=== PATIENT | male | born 1940 | race Caucasian/White ===

== ENCOUNTER 2020-08-17 09:51 | Inpatient (IN) ==
[2020-08-17 10:59] LABS: Basophils % 0.4 % (0.0-0.8); Hematocrit 46.5 VOL% (42.0-52.0); Hemoglobin 15.8 GM/DL (14.0-18.0); Immature Granulocytes % 0.3 %; Immature Granulocytes Absolute 0.02 #; Lymphocytes # 0.9 10*3/uL (1.4-4.0); Lymphocytes % 12.7 % (21.2-54.2); Mean Corpuscular Volume 96.3 FL (87-102); Mean Platelet Volume 11.9 FL (9.6-12.0); Monocytes % 7.1 % (1.7-12.7); Neutrophils % 79.5 % (38.7-73.9); Platelet Count 157 T/CUMM (130-400); Red Blood Count 4.83 MC/CUMM (3.8-5.5); Red Cell Distribution Width 11.6 % (9.3-17.3); White Blood Count 7.2 T/CUMM (4-12)
[2020-08-17 11:22] LABS: Albumin 2.8 G/DL (3.4-5.0); Bilirubin,Total 0.7 MG/DL (0.2-1.0); Calcium 9.1 MG/DL (8.5-10.1); Osmolality,Calculated 292.4 MOS/KG (273-304); Total Protein 6.5 G/DL (6.4-8.3)
[2020-08-17 11:23] LABS: CKMB % 2.6 %; Troponin I 0.023 NG/ML (0.00-0.045)
[2020-08-17] MEDS ORDERED: MELATONIN 3 MG TABLET PO PRN (13:04)
[2020-08-17] MEDS ORDERED: GLUCAGON 1 MG VIAL IM PRN ×2 (13:04)
[2020-08-17] MEDS ORDERED: DEXTROSE 50% 25 GM/50 ML VIAL IV PRN ×2 (13:04)
[2020-08-17] MEDS ORDERED: ONDANSETRON 4 MG/2 ML VIAL IV PRN (13:04)
[2020-08-17] MEDS ORDERED: AZITHROMYCIN INJ 500 MG in SODIUM CHLORIDE 0.9% 250 ML IV ONE (13:20)
[2020-08-17 14:31] LABS: Ferritin 669.9 ng/ml (26-388)
[2020-08-17] MEDS ORDERED: REMDESIVIR 200 MG in SODIUM CHLORIDE 0.9% 210 ML IV ONE (15:00)
[2020-08-17] MEDS: cefTRIAXone 1,000 MG in SYRINGE 1 EACH IV SCH (15:17)
[2020-08-17] MEDS: SODIUM CHLORIDE 0.9% 1,000 ML IV SCH (15:22)
[2020-08-17] MEDS: INSULIN REGULAR 100 UNIT/ML SUBCUT SCH ×2 (16:39→21:26)
[2020-08-17 18:31] LABS: Amorphous Crystals,Urine Occasional /HPF (Few); Bilirubin,Urine Negative (Negative); Blood, Urine Small mg/dL (Negative); Glucose,Urine (UA) Negative (Negative); Hyaline Casts,Urine 15 /LPF (0-3); Ketones,Urine Negative (Negative); Mucus,Urine Occasional /LPF (Occasional); Nitrite,Urine Negative (Negative); Protein,Urine 100 MG/DL; RBC,Urine 3 /HPF (0-4); Squamous Epithelial Cell,Urine Occasional /HPF (0-10); Urine Appearance Slightly Hazy (Clear); Urine Color Amber (Yellow); Urine Specific Gravity 1.023 (1.001-1.035); WBC,Urine 1 /HPF (0-6)
[2020-08-17] MEDS: ENOXAPARIN 40 MG/0.4 ML SYRINGE SUBCUT SCH (21:26)
[2020-08-17] MEDS: FAMOTIDINE 20 MG TABLET PO SCH (21:26)
[2020-08-17] MEDS: ASCORBIC ACID 500 MG TABLET PO SCH (21:26)
[2020-08-18] MEDS ORDERED: DILTIAZEM 25 MG/5 ML VIAL IV ONE (01:35)
[2020-08-18] MEDS ORDERED: METOPROLOL TARTRATE 5 MG/5 ML VIAL IV ONE (01:41)
[2020-08-18] MEDS ORDERED: LORazepam 2 MG/1 ML VIAL IV ONE (01:58)
[2020-08-18 02:10] LABS: ABG Base Excess 0.2 MMOL/L (-2.5-2.5); ABG HCO3 24.2 MMOL/L (20-26); ABG PCO2 42.7 MM HG (35-48); ABG PH 7.385 (7.35-7.45); ABG PO2 48.4 MM HG (80-95); ABG TCO2 21.4 MMOL/L (23-27)
[2020-08-18] MEDS ORDERED: ETOMIDATE 20 MG/10 ML VIAL IV ONE ×2 (02:13→02:57)
[2020-08-18] MEDS ORDERED: ROCURONIUM 100 MG/10 ML VIAL IV ONE ×2 (02:13→02:57)
[2020-08-18] MEDS ORDERED: SODIUM CHLORIDE 0.9% 1,000 ML IV ONE (02:55)
[2020-08-18] MEDS: SODIUM CHLORIDE 0.9% 1,000 ML IV SCH ×5 (02:58→23:14)
[2020-08-18] MEDS: ACETAMINOPHEN 325 MG TABLET PO PRN (04:00)
[2020-08-18 04:04] LABS: ABG Base Excess -2.1 MMOL/L (-2.5-2.5); ABG HCO3 22.6 MMOL/L (20-26); ABG Oxygen Saturation 97.1 % (95-100); ABG PCO2 46.9 MM HG (35-48); ABG PH 7.326 (7.35-7.45); ABG PO2 99.5 MM HG (80-95); ABG TCO2 20.8 MMOL/L (23-27)
[2020-08-18 04:45] LABS: Basophils % 0.2 % (0.0-0.8); Hematocrit 45.8 VOL% (42.0-52.0); Hemoglobin 15.4 GM/DL (14.0-18.0); Immature Granulocytes % 0.6 %; Immature Granulocytes Absolute 0.06 #; Lymphocytes # 0.5 10*3/uL (1.4-4.0); Lymphocytes % 4.8 % (21.2-54.2); Mean Corpuscular HGB Conc 33.6 GM/DL (32-36); Mean Corpuscular Volume 96.2 FL (87-102); Mean Platelet Volume 11.8 FL (9.6-12.0); Monocytes % 5.5 % (1.7-12.7); Neutrophils % 88.9 % (38.7-73.9); Platelet Count 174 T/CUMM (130-400); Red Blood Count 4.76 MC/CUMM (3.8-5.5); Red Cell Distribution Width 11.6 % (9.3-17.3); White Blood Count 10.8 T/CUMM (4-12)
[2020-08-18 05:08] LABS: Albumin 2.2 G/DL (3.4-5.0); Bilirubin,Total 0.7 MG/DL (0.2-1.0); Calcium 8.3 MG/DL (8.5-10.1); Osmolality,Calculated 289.5 MOS/KG (273-304); Total Protein 6.1 G/DL (6.4-8.3)
[2020-08-18] MEDS: MIDAZOLAM 100 MG in SODIUM CHLORIDE 0.9% 80 ML IV PRN ×2 (05:12→22:13)
[2020-08-18 05:16] LABS: Band Neutrophils 1 % (0-10); Lymphocytes 2 % (20-55); Segmented Neutrophils 95 % (50-85); Total Cells Counted 100
[2020-08-18 05:17] LABS: Platelet Estimate Normal
[2020-08-18] MEDS: INSULIN REGULAR 100 UNIT/ML SUBCUT SCH ×3 (07:59→18:15)
[2020-08-18] MEDS: ASCORBIC ACID 500 MG TABLET PO SCH ×2 (08:27→20:07)
[2020-08-18] MEDS: DEXAMETHASONE 4 MG/1 ML VIAL IV SCH (08:27)
[2020-08-18] MEDS: AZITHROMYCIN 250 MG TABLET PO SCH (08:27)
[2020-08-18] MEDS: FAMOTIDINE 20 MG TABLET PO SCH ×2 (08:27→20:08)
[2020-08-18] MEDS: CETIRIZINE 10 MG TABLET PO SCH (08:27)
[2020-08-18] MEDS: ZINC GLUCONATE 50 MG TABLET PO SCH (08:27)
[2020-08-18] MEDS: ENOXAPARIN 40 MG/0.4 ML SYRINGE SUBCUT SCH ×2 (08:28→20:08)
[2020-08-18] MEDS ORDERED: DEXAMETHASONE 4 MG/1 ML VIAL IV SCH (09:00)
[2020-08-18] MEDS: PHENYLEPHRINE DRIP 40 MG/250 ML PREMIX IV PRN (14:15)
[2020-08-18] MEDS: REMDESIVIR 100 MG in SODIUM CHLORIDE 0.9% 100 ML IV SCH (14:15)
[2020-08-18] MEDS ORDERED: SODIUM CHLORIDE 0.9% 1,000 ML IV PRN (14:38)
[2020-08-18] MEDS: cefTRIAXone 1,000 MG in SYRINGE 1 EACH IV SCH (16:10)
[2020-08-19] MEDS: INSULIN REGULAR 100 UNIT/ML SUBCUT SCH ×4 (00:48→18:02)
[2020-08-19 04:17] LABS: Basophils % 0.1 % (0.0-0.8); Hematocrit 40.7 VOL% (42.0-52.0); Hemoglobin 13.9 GM/DL (14.0-18.0); Immature Granulocytes % 0.5 %; Immature Granulocytes Absolute 0.04 #; Lymphocytes # 0.6 10*3/uL (1.4-4.0); Lymphocytes % 7.3 % (21.2-54.2); Mean Corpuscular HGB Conc 34.2 GM/DL (32-36); Mean Corpuscular Volume 96.2 FL (87-102); Mean Platelet Volume 11.6 FL (9.6-12.0); Monocytes % 6.3 % (1.7-12.7); Neutrophils % 85.8 % (38.7-73.9); Platelet Count 153 T/CUMM (130-400); Red Blood Count 4.23 MC/CUMM (3.8-5.5); Red Cell Distribution Width 11.9 % (9.3-17.3); White Blood Count 8.7 T/CUMM (4-12)
[2020-08-19 04:40] LABS: Calcium 8.1 MG/DL (8.5-10.1); Osmolality,Calculated 305.7 MOS/KG (273-304)
[2020-08-19 05:00] LABS: Allen Test Positive; Pt O2 Delivery Device Ventilator
[2020-08-19 05:04] LABS: ABG Base Excess -0.9 MMOL/L (-2.5-2.5); ABG HCO3 23.6 MMOL/L (20-26); ABG PCO2 52.4 MM HG (35-48)
[2020-08-19] MEDS: SODIUM CHLORIDE 0.9% 1,000 ML IV SCH ×3 (05:32→17:24)
[2020-08-19] MEDS: DEXAMETHASONE 4 MG/1 ML VIAL IV SCH (08:20)
[2020-08-19] MEDS: ENOXAPARIN 40 MG/0.4 ML SYRINGE SUBCUT SCH ×2 (08:20→20:45)
[2020-08-19] MEDS: ZINC GLUCONATE 50 MG TABLET PO SCH (08:20)
[2020-08-19] MEDS: CETIRIZINE 10 MG TABLET PO SCH (08:21)
[2020-08-19] MEDS: ASCORBIC ACID 500 MG TABLET PO SCH ×2 (08:21→20:45)
[2020-08-19] MEDS: FAMOTIDINE 20 MG TABLET PO SCH ×2 (08:21→20:45)
[2020-08-19] MEDS: AZITHROMYCIN 250 MG TABLET PO SCH (08:21)
[2020-08-19] MEDS: REMDESIVIR 100 MG in SODIUM CHLORIDE 0.9% 100 ML IV SCH (14:53)
[2020-08-19] MEDS: MIDAZOLAM 100 MG in SODIUM CHLORIDE 0.9% 80 ML IV PRN (15:21)
[2020-08-19] MEDS: cefTRIAXone 1,000 MG in SYRINGE 1 EACH IV SCH (17:24)
[2020-08-20] MEDS: SODIUM CHLORIDE 0.9% 1,000 ML IV SCH (01:12)
[2020-08-20] MEDS: INSULIN REGULAR 100 UNIT/ML SUBCUT SCH ×4 (01:12→19:02)
[2020-08-20 02:52] LABS: ABG Base Excess 0.2 MMOL/L (-2.5-2.5); ABG HCO3 24.7 MMOL/L (20-26); ABG Oxygen Saturation 99.1 % (95-100); ABG PCO2 54.6 MM HG (35-48); ABG PH 7.313 (7.35-7.45); ABG TCO2 24.4 MMOL/L (23-27)
[2020-08-20 04:55] LABS: Basophils % 0.2 % (0.0-0.8); Hematocrit 39.9 VOL% (42.0-52.0); Immature Granulocytes % 0.7 %; Immature Granulocytes Absolute 0.08 #; Lymphocytes # 0.5 10*3/uL (1.4-4.0); Lymphocytes % 4.5 % (21.2-54.2); Mean Corpuscular HGB Conc 32.6 GM/DL (32-36); Mean Corpuscular Volume 97.8 FL (87-102); Mean Platelet Volume 12.2 FL (9.6-12.0); Monocytes % 7.9 % (1.7-12.7); Neutrophils % 86.7 % (38.7-73.9); Platelet Count 144 T/CUMM (130-400); Red Blood Count 4.08 MC/CUMM (3.8-5.5); Red Cell Distribution Width 11.9 % (9.3-17.3); White Blood Count 11.4 T/CUMM (4-12)
[2020-08-20 04:57] LABS: Calcium 8.6 MG/DL (8.5-10.1); Osmolality,Calculated 308.6 MOS/KG (273-304)
[2020-08-20 05:27] LABS: Lymphocytes 4 % (20-55); Platelet Estimate Adequate; Segmented Neutrophils 94 % (50-85); Total Cells Counted 100
[2020-08-20] MEDS: ENOXAPARIN 40 MG/0.4 ML SYRINGE SUBCUT SCH ×2 (08:10→20:18)
[2020-08-20] MEDS: DEXAMETHASONE 4 MG/1 ML VIAL IV SCH (08:10)
[2020-08-20] MEDS: FAMOTIDINE 20 MG TABLET PO SCH ×2 (08:11→20:18)
[2020-08-20] MEDS: AZITHROMYCIN 250 MG TABLET PO SCH (08:11)
[2020-08-20] MEDS: ASCORBIC ACID 500 MG TABLET PO SCH ×2 (08:11→20:18)
[2020-08-20] MEDS: ZINC GLUCONATE 50 MG TABLET PO SCH (08:11)
[2020-08-20] MEDS: CETIRIZINE 10 MG TABLET PO SCH (08:11)
[2020-08-20] MEDS ORDERED: SODIUM CHLORIDE 0.45% 1,000 ML IV SCH (08:30)
[2020-08-20] MEDS ORDERED: FUROSEMIDE 40 MG/4 ML VIAL IV ONE (09:42)
[2020-08-20] MEDS: ALBUTEROL INHALER 18 GM INH SCH ×2 (12:37→21:03)
[2020-08-20] MEDS: cefTRIAXone 1,000 MG in SYRINGE 1 EACH IV SCH (17:20)
[2020-08-20] MEDS: REMDESIVIR 100 MG in SODIUM CHLORIDE 0.9% 100 ML IV SCH (18:20)
[2020-08-20] MEDS: cloNIDine 0.1 MG TABLET PO SCH (20:18)
[2020-08-20] MEDS ORDERED: METOPROLOL TARTRATE 5 MG/5 ML VIAL IV ONE (22:54)
[2020-08-20] MEDS ORDERED: fentaNYL 100 MCG/2 ML VIAL IV ONE (23:14)
[2020-08-20] MEDS: ACETAMINOPHEN 325 MG TABLET PO PRN (23:21)
[2020-08-21] MEDS: fentaNYL INJ 1,250 MCG in SODIUM CHLORIDE 0.9% 225 ML IV PRN ×3 (00:15→21:00)
[2020-08-21] MEDS: ALBUTEROL INHALER 18 GM INH SCH ×4 (00:15→18:41)
[2020-08-21] MEDS: INSULIN REGULAR 100 UNIT/ML SUBCUT SCH ×4 (00:15→18:41)
[2020-08-21 04:03] LABS: ABG Base Excess 4.6 MMOL/L (-2.5-2.5); ABG HCO3 28.3 MMOL/L (20-26); ABG PCO2 56.9 MM HG (35-48); ABG PH 7.358 (7.35-7.45); ABG PO2 56.9 MM HG (80-95); ABG TCO2 27.8 MMOL/L (23-27)
[2020-08-21 05:28] LABS: Basophils # 0.1 10*3/uL (0.0-0.2); Basophils % 0.5 % (0.0-0.8); Hemoglobin 14.3 GM/DL (14.0-18.0); Immature Granulocytes % 2.9 %; Lymphocytes # 0.7 10*3/uL (1.4-4.0); Lymphocytes % 5.2 % (21.2-54.2); Mean Corpuscular HGB Conc 33.3 GM/DL (32-36); Mean Corpuscular Volume 98.6 FL (87-102); Mean Platelet Volume 12.2 FL (9.6-12.0); Monocytes % 9.6 % (1.7-12.7); Neutrophils % 81.8 % (38.7-73.9); Platelet Count 114 T/CUMM (130-400); Red Blood Count 4.36 MC/CUMM (3.8-5.5); White Blood Count 13.9 T/CUMM (4-12)
[2020-08-21 05:53] LABS: Calcium 8.8 MG/DL (8.5-10.1); Osmolality,Calculated 303.7 MOS/KG (273-304)
[2020-08-21] MEDS: DEXAMETHASONE 4 MG/1 ML VIAL IV SCH (08:19)
[2020-08-21] MEDS: ENOXAPARIN 40 MG/0.4 ML SYRINGE SUBCUT SCH (08:19)
[2020-08-21] MEDS: ASCORBIC ACID 500 MG TABLET PO SCH ×2 (08:20→20:01)
[2020-08-21] MEDS: CETIRIZINE 10 MG TABLET PO SCH (08:20)
[2020-08-21] MEDS: FAMOTIDINE 20 MG TABLET PO SCH ×2 (08:20→20:01)
[2020-08-21] MEDS: AZITHROMYCIN 250 MG TABLET PO SCH (08:20)
[2020-08-21] MEDS: ZINC GLUCONATE 50 MG TABLET PO SCH (08:20)
[2020-08-21] MEDS: cloNIDine 0.1 MG TABLET PO SCH (09:25)
[2020-08-21] MEDS: PHENYLEPHRINE DRIP 40 MG/250 ML PREMIX IV PRN ×3 (10:15→23:51)
[2020-08-21] MEDS: REMDESIVIR 100 MG in SODIUM CHLORIDE 0.9% 100 ML IV SCH (14:52)
[2020-08-21] MEDS: cefTRIAXone 1,000 MG in SYRINGE 1 EACH IV SCH (18:41)
[2020-08-21] MEDS: ROCURONIUM 500 MG in SODIUM CHLORIDE 0.9% 500 ML IV PRN (23:51)
[2020-08-22] MEDS: INSULIN REGULAR 100 UNIT/ML SUBCUT SCH ×4 (01:22→18:05)
[2020-08-22] MEDS: ALBUTEROL INHALER 18 GM INH SCH ×4 (01:22→18:06)
[2020-08-22] MEDS: fentaNYL INJ 1,250 MCG in SODIUM CHLORIDE 0.9% 225 ML IV PRN ×2 (05:15→06:18)
[2020-08-22 05:18] LABS: ABG Base Excess 1.6 MMOL/L (-2.5-2.5); ABG HCO3 25.7 MMOL/L (20-26); ABG PO2 79.6 MM HG (80-95); ABG TCO2 28.1 MMOL/L (23-27); Allen Test Positive; Pt O2 Delivery Device Ventilator
[2020-08-22] MEDS: PHENYLEPHRINE DRIP 40 MG/250 ML PREMIX IV PRN ×3 (06:13→18:43)
[2020-08-22] MEDS: fentaNYL INJ 2,500 MCG in SODIUM CHLORIDE 0.9% 500 ML IV PRN ×2 (06:33→16:41)
[2020-08-22 07:14] LABS: Basophils # 0.1 10*3/uL (0.0-0.2); Basophils % 0.3 % (0.0-0.8); Eosinophils % 0.1 % (0.00-10.9); Hematocrit 43.4 VOL% (42.0-52.0); Hemoglobin 13.8 GM/DL (14.0-18.0); Immature Granulocytes % 8.2 %; Immature Granulocytes Absolute 1.58 #; Lymphocytes # 1.4 10*3/uL (1.4-4.0); Lymphocytes % 7.5 % (21.2-54.2); Mean Corpuscular HGB Conc 31.8 GM/DL (32-36); Mean Corpuscular Volume 102.4 FL (87-102); Mean Platelet Volume 12.1 FL (9.6-12.0); Monocytes % 8.5 % (1.7-12.7); NRBC # 0.03 10*3/uL; Neutrophils % 75.4 % (38.7-73.9); Red Blood Count 4.24 MC/CUMM (3.8-5.5); Red Cell Distribution Width 12.6 % (9.3-17.3)
[2020-08-22 07:16] LABS: Platelet Count 97 T/CUMM (130-400); White Blood Count 19.2 T/CUMM (4-12)
[2020-08-22 07:42] LABS: Band Neutrophils 3 % (0-10); Lymphocytes 14 % (20-55); Myelocytes 1 %; Nucleated Red Blood Cells 1 (0-5); Segmented Neutrophils 76 % (50-85); Total Cells Counted 100
[2020-08-22 07:43] LABS: Hypochromasia Slight; Microcytosis Slight
[2020-08-22 07:44] LABS: Platelet Estimate Decreased
[2020-08-22 07:51] LABS: Calcium 8.4 MG/DL (8.5-10.1)
[2020-08-22] MEDS: FAMOTIDINE 20 MG TABLET PO SCH ×2 (09:06→20:17)
[2020-08-22] MEDS: FONDAPARINUX 2.5 MG/0.5 ML SYRINGE SUBCUT SCH (09:06)
[2020-08-22] MEDS: DEXAMETHASONE 4 MG/1 ML VIAL IV SCH (09:06)
[2020-08-22] MEDS: ZINC GLUCONATE 50 MG TABLET PO SCH (09:06)
[2020-08-22] MEDS: CETIRIZINE 10 MG TABLET PO SCH (09:11)
[2020-08-22] MEDS: ASCORBIC ACID 500 MG TABLET PO SCH ×2 (09:11→20:17)
[2020-08-22] MEDS: ROCURONIUM 500 MG in SODIUM CHLORIDE 0.9% 500 ML IV PRN (12:18)
[2020-08-22] MEDS: ACETAMINOPHEN 325 MG TABLET PO PRN (12:20)
[2020-08-22] MEDS: methylPREDNISolone SOD SUC 40 MG/1 ML VIAL IV SCH ×2 (12:56→20:18)
[2020-08-22] MEDS: FUROSEMIDE 40 MG/4 ML VIAL IV SCH (12:56)
[2020-08-22 13:49] LABS: ABG HCO3 25.2 MMOL/L (20-26); ABG PH 7.243 (7.35-7.45); ABG PO2 75.5 MM HG (80-95); ABG TCO2 27.7 MMOL/L (23-27)
[2020-08-22 13:50] LABS: ABG PCO2 72.8 MM HG (35-48)
[2020-08-22] MEDS: PIPERACILLIN/TAZOBACTAM 3,375 MG in SODIUM CHLORIDE 0.9% 100 ML IV SCH (15:34)
[2020-08-22 18:14] LABS: ABG Base Excess 1.6 MMOL/L (-2.5-2.5); ABG HCO3 25.9 MMOL/L (20-26); ABG Oxygen Saturation 98.1 % (95-100); ABG PH 7.276 (7.35-7.45); ABG TCO2 27.2 MMOL/L (23-27)
[2020-08-22] MEDS: MIDAZOLAM 100 MG in SODIUM CHLORIDE 0.9% 80 ML IV PRN (20:05)
[2020-08-23] MEDS: ALBUTEROL INHALER 18 GM INH SCH ×4 (00:12→18:09)
[2020-08-23] MEDS: PIPERACILLIN/TAZOBACTAM 3,375 MG in SODIUM CHLORIDE 0.9% 100 ML IV SCH ×2 (00:12→06:23)
[2020-08-23] MEDS: INSULIN REGULAR 100 UNIT/ML SUBCUT SCH ×4 (00:12→18:09)
[2020-08-23] MEDS: ROCURONIUM 500 MG in SODIUM CHLORIDE 0.9% 500 ML IV PRN (00:13)
[2020-08-23 04:07] LABS: Allen Test Positive; Pt O2 Delivery Device Ventilator
[2020-08-23 04:13] LABS: ABG Base Excess 0.5 MMOL/L (-2.5-2.5); ABG HCO3 24.8 MMOL/L (20-26); ABG Oxygen Saturation 98.5 % (95-100); ABG PH 7.214 (7.35-7.45); ABG TCO2 28.2 MMOL/L (23-27)
[2020-08-23 04:47] LABS: ABG PCO2 77.6 MM HG (35-48)
[2020-08-23 05:00] LABS: Basophils % 0.1 % (0.0-0.8); Hematocrit 41.2 VOL% (42.0-52.0); Immature Granulocytes % 9.2 %; Immature Granulocytes Absolute 1.78 #; Lymphocytes % 5.2 % (21.2-54.2); Mean Corpuscular HGB Conc 31.6 GM/DL (32-36); Mean Platelet Volume 12.5 FL (9.6-12.0); Monocytes % 6.2 % (1.7-12.7); NRBC # 0.03 10*3/uL; Neutrophils % 79.3 % (38.7-73.9); Red Cell Distribution Width 12.5 % (9.3-17.3); White Blood Count 19.3 T/CUMM (4-12)
[2020-08-23 05:04] LABS: Platelet Count 67 T/CUMM (130-400)
[2020-08-23] MEDS: fentaNYL INJ 2,500 MCG in SODIUM CHLORIDE 0.9% 500 ML IV PRN ×2 (05:12→13:40)
[2020-08-23] MEDS: PHENYLEPHRINE DRIP 40 MG/250 ML PREMIX IV PRN ×4 (05:13→22:32)
[2020-08-23 05:20] LABS: Calcium 8.6 MG/DL (8.5-10.1); Osmolality,Calculated 325.4 MOS/KG (273-304)
[2020-08-23 05:23] LABS: Lymphocytes 3 % (20-55); Nucleated Red Blood Cells 1 (0-5); Platelet Estimate Decreased; Segmented Neutrophils 91 % (50-85); Total Cells Counted 100
[2020-08-23] MEDS: methylPREDNISolone SOD SUC 40 MG/1 ML VIAL IV SCH ×3 (06:22→20:21)
[2020-08-23] MEDS: ASCORBIC ACID 500 MG TABLET PO SCH ×2 (09:36→20:21)
[2020-08-23] MEDS: ZINC GLUCONATE 50 MG TABLET PO SCH (09:36)
[2020-08-23] MEDS: FUROSEMIDE 40 MG/4 ML VIAL IV SCH (09:36)
[2020-08-23] MEDS: FAMOTIDINE 20 MG TABLET PO SCH ×2 (09:36→20:21)
[2020-08-23] MEDS ORDERED: FONDAPARINUX 2.5 MG/0.5 ML SYRINGE SUBCUT SCH (10:45)
[2020-08-23] MEDS: FONDAPARINUX 2.5 MG/0.5 ML SYRINGE SUBCUT SCH (11:19)
[2020-08-23] MEDS: CEFEPIME 1,000 MG in SODIUM CHLORIDE 0.9% 100 ML IV SCH ×2 (11:42→17:20)
[2020-08-23] MEDS ORDERED: FONDAPARINUX 2.5 MG/0.5 ML SYRINGE SUBCUT ONE (14:00)
[2020-08-23] MEDS: SODIUM ZIRCONIUM CYCLOSILICATE 10 GM PACK PO SCH ×2 (16:34→20:21)
[2020-08-24] MEDS: INSULIN REGULAR 100 UNIT/ML SUBCUT SCH ×4 (00:40→18:27)
[2020-08-24] MEDS: CEFEPIME 1,000 MG in SODIUM CHLORIDE 0.9% 100 ML IV SCH ×5 (00:40→23:16)
[2020-08-24] MEDS: ALBUTEROL INHALER 18 GM INH SCH ×4 (00:40→18:28)
[2020-08-24 04:52] LABS: ABG Base Excess 3.9 MMOL/L (-2.5-2.5); ABG HCO3 27.7 MMOL/L (20-26); ABG PH 7.292 (7.35-7.45); ABG PO2 70.3 MM HG (80-95); ABG TCO2 29.3 MMOL/L (23-27); Allen Test Positive; Pt O2 Delivery Device Ventilator
[2020-08-24] MEDS: fentaNYL INJ 2,500 MCG in SODIUM CHLORIDE 0.9% 500 ML IV PRN ×2 (05:03→21:29)
[2020-08-24 05:11] LABS: Basophils % 0.1 % (0.0-0.8); Hematocrit 40.7 VOL% (42.0-52.0); Hemoglobin 12.5 GM/DL (14.0-18.0); Immature Granulocytes % 8.2 %; Immature Granulocytes Absolute 1.51 #; Lymphocytes # 0.6 10*3/uL (1.4-4.0); Lymphocytes % 3.2 % (21.2-54.2); Mean Corpuscular HGB Conc 30.7 GM/DL (32-36); Mean Corpuscular Volume 104.1 FL (87-102); Mean Platelet Volume 12.6 FL (9.6-12.0); Monocytes % 8.8 % (1.7-12.7); NRBC # 0.07 10*3/uL; Neutrophils % 79.7 % (38.7-73.9); Red Blood Count 3.91 MC/CUMM (3.8-5.5); Red Cell Distribution Width 12.7 % (9.3-17.3); White Blood Count 18.4 T/CUMM (4-12)
[2020-08-24 05:13] LABS: Platelet Count 50 T/CUMM (130-400)
[2020-08-24] MEDS: MIDAZOLAM 100 MG in SODIUM CHLORIDE 0.9% 80 ML IV PRN (05:30)
[2020-08-24 05:32] LABS: Hypochromasia 1+; Lymphocytes 2 % (20-55); Myelocytes 1 %; Segmented Neutrophils 93 % (50-85); Total Cells Counted 100
[2020-08-24 05:33] LABS: Macrocytosis Slight; Platelet Estimate Decreased
[2020-08-24 05:37] LABS: Calcium 8.9 MG/DL (8.5-10.1)
[2020-08-24] MEDS: methylPREDNISolone SOD SUC 40 MG/1 ML VIAL IV SCH ×3 (06:02→21:34)
[2020-08-24 06:15] LABS: Folate 19.6 NG/ML (5.4-24.0)
[2020-08-24] MEDS: ZINC GLUCONATE 50 MG TABLET PO SCH (10:36)
[2020-08-24] MEDS: FONDAPARINUX 7.5 MG/0.6 ML SYRINGE SUBCUT SCH (10:36)
[2020-08-24] MEDS: METOPROLOL TARTRATE 5 MG/5 ML VIAL IV PRN (10:36)
[2020-08-24] MEDS: SODIUM ZIRCONIUM CYCLOSILICATE 10 GM PACK PO SCH (10:36)
[2020-08-24] MEDS: FAMOTIDINE 20 MG TABLET PO SCH ×2 (10:36→21:33)
[2020-08-24] MEDS: ASCORBIC ACID 500 MG TABLET PO SCH ×2 (10:37→21:33)
[2020-08-24] MEDS ORDERED: SODIUM POLYSTYRENE SULFATE 15 GM/60 ML BOTTLE PO ONE (13:32)
[2020-08-24] MEDS ORDERED: cloNIDine 0.1 MG TABLET PO PRN (13:39)
[2020-08-24] MEDS: METOPROLOL TARTRATE 25 MG TABLET PO SCH ×2 (16:42→21:33)
[2020-08-24] MEDS ORDERED: INSULIN GLARGINE 100 UNIT/ML SUBCUT SCH (21:00)
[2020-08-24] MEDS: ACETAMINOPHEN 325 MG TABLET PO PRN (21:55)
[2020-08-25] MEDS: INSULIN REGULAR 100 UNIT/ML SUBCUT SCH ×4 (01:03→18:10)
[2020-08-25] MEDS: ALBUTEROL INHALER 18 GM INH SCH ×4 (01:04→18:10)
[2020-08-25 03:11] LABS: ABG Base Excess 4.6 MMOL/L (-2.5-2.5); ABG HCO3 28.5 MMOL/L (20-26); ABG Oxygen Saturation 98.9 % (95-100); ABG PH 7.283 (7.35-7.45); ABG TCO2 30.5 MMOL/L (23-27)
[2020-08-25 03:13] LABS: ABG PCO2 71.8 MM HG (35-48)
[2020-08-25 04:19] LABS: Basophils # 0.1 10*3/uL (0.0-0.2); Basophils % 0.6 % (0.0-0.8); Hematocrit 39.9 VOL% (42.0-52.0); Hemoglobin 12.2 GM/DL (14.0-18.0); Lymphocytes # 0.5 10*3/uL (1.4-4.0); Lymphocytes % 3.3 % (21.2-54.2); Mean Corpuscular HGB Conc 30.6 GM/DL (32-36); Mean Corpuscular Volume 105.8 FL (87-102); Mean Platelet Volume 13.3 FL (9.6-12.0); Monocytes % 8.3 % (1.7-12.7); NRBC # 0.08 10*3/uL; Neutrophils % 79.8 % (38.7-73.9); Red Blood Count 3.77 MC/CUMM (3.8-5.5); Red Cell Distribution Width 12.8 % (9.3-17.3); White Blood Count 16.2 T/CUMM (4-12)
[2020-08-25 04:20] LABS: Platelet Count 56 T/CUMM (130-400)
[2020-08-25 04:43] LABS: Hypochromasia 1+; Lymphocytes 9 % (20-55); Microcytosis 1+; Nucleated Red Blood Cells 1 (0-5); Platelet Estimate Decreased; Segmented Neutrophils 85 % (50-85); Total Cells Counted 100
[2020-08-25 04:47] LABS: Osmolality,Calculated 340.7 MOS/KG (273-304)
[2020-08-25] MEDS: methylPREDNISolone SOD SUC 40 MG/1 ML VIAL IV SCH ×3 (05:57→21:33)
[2020-08-25] MEDS: CEFEPIME 1,000 MG in SODIUM CHLORIDE 0.9% 100 ML IV SCH ×3 (05:58→18:10)
[2020-08-25] MEDS: METOPROLOL TARTRATE 5 MG/5 ML VIAL IV PRN (06:18)
[2020-08-25] MEDS ORDERED: hydrALAZINE 20 MG/1 ML VIAL IV PRN (06:41)
[2020-08-25] MEDS: ASCORBIC ACID 500 MG TABLET PO SCH ×2 (08:15→21:32)
[2020-08-25] MEDS: METOPROLOL TARTRATE 25 MG TABLET PO SCH ×2 (08:15→21:32)
[2020-08-25] MEDS: ZINC GLUCONATE 50 MG TABLET PO SCH (08:15)
[2020-08-25] MEDS: FAMOTIDINE 20 MG TABLET PO SCH ×2 (08:15→21:33)
[2020-08-25] MEDS: cloNIDine 0.1 MG TABLET PO SCH (08:15)
[2020-08-25] MEDS: FONDAPARINUX 7.5 MG/0.6 ML SYRINGE SUBCUT SCH (08:17)
[2020-08-25] MEDS: ZINC OXIDE PASTE 113 GM TUBE TOP SCH ×2 (12:28→21:38)
[2020-08-25] MEDS: fentaNYL INJ 2,500 MCG in SODIUM CHLORIDE 0.9% 500 ML IV PRN (13:18)
[2020-08-25] MEDS: DEXTROSE 5% 1,000 ML IV SCH (15:15)
[2020-08-25] MEDS ORDERED: INSULIN GLARGINE 100 UNIT/ML SUBCUT SCH (21:00)
[2020-08-26] MEDS: cloNIDine 0.1 MG TABLET PO SCH ×3 (00:04→11:33)
[2020-08-26] MEDS ORDERED: MIDAZOLAM 100 MG in SODIUM CHLORIDE 0.9% 80 ML IV PRN (00:18)
[2020-08-26] MEDS: INSULIN REGULAR 100 UNIT/ML SUBCUT SCH ×4 (01:00→17:54)
[2020-08-26] MEDS: ALBUTEROL INHALER 18 GM INH SCH ×4 (01:30→18:19)
[2020-08-26] MEDS: PHENYLEPHRINE DRIP 40 MG/250 ML PREMIX IV PRN ×4 (01:38→22:24)
[2020-08-26] MEDS: fentaNYL INJ 2,500 MCG in SODIUM CHLORIDE 0.9% 450 ML IV PRN ×4 (02:15→20:40)
[2020-08-26 03:05] VITALS: BP 106/73
[2020-08-26 04:57] LABS: ABG Base Excess 2.8 MMOL/L (-2.5-2.5); ABG HCO3 32.2 MMOL/L (20-26); ABG Oxygen Saturation 87.8 % (95-100); ABG PH 7.244 (7.35-7.45); ABG PO2 59.3 MM HG (80-95); ABG TCO2 34.6 MMOL/L (23-27)
[2020-08-26 04:58] LABS: ABG PCO2 76.2 MM HG (35-48)
[2020-08-26 04:59] LABS: Basophils # 0.2 10*3/uL (0.0-0.2); Basophils % 0.9 % (0.0-0.8); Hematocrit 39.2 VOL% (42.0-52.0); Hemoglobin 11.8 GM/DL (14.0-18.0); Immature Granulocytes % 9.5 %; Immature Granulocytes Absolute 2.09 #; Lymphocytes # 0.6 10*3/uL (1.4-4.0); Lymphocytes % 2.7 % (21.2-54.2); Mean Corpuscular HGB Conc 30.1 GM/DL (32-36); Mean Corpuscular Volume 107.7 FL (87-102); Mean Platelet Volume 13.6 FL (9.6-12.0); Monocytes % 4.3 % (1.7-12.7); NRBC # 0.18 10*3/uL; Neutrophils % 82.6 % (38.7-73.9); Platelet Count 56 T/CUMM (130-400); Red Blood Count 3.64 MC/CUMM (3.8-5.5); Red Cell Distribution Width 12.6 % (9.3-17.3); White Blood Count 22.1 T/CUMM (4-12)
[2020-08-26 05:16] LABS: Albumin 1.6 G/DL (3.4-5.0); Bilirubin,Total 0.8 MG/DL (0.2-1.0); Calcium 8.5 MG/DL (8.5-10.1); Ferritin 1654.7 ng/ml (26-388); Osmolality,Calculated 331.7 MOS/KG (273-304); Total Protein 5.7 G/DL (6.4-8.3)
[2020-08-26 05:40] LABS: Band Neutrophils 4 % (0-10); Hypochromasia Slight; Lymphocytes 4 % (20-55); Myelocytes 1 %; Nucleated Red Blood Cells 1 (0-5); Segmented Neutrophils 90 % (50-85); Total Cells Counted 100
[2020-08-26 05:41] LABS: Microcytosis 1+; Platelet Estimate Decreased; Polychromasia Slight
[2020-08-26] MEDS: CEFEPIME 1,000 MG in SODIUM CHLORIDE 0.9% 100 ML IV SCH ×4 (06:29→17:53)
[2020-08-26] MEDS: methylPREDNISolone SOD SUC 40 MG/1 ML VIAL IV SCH ×4 (06:29→20:49)
[2020-08-26] MEDS: ASCORBIC ACID 500 MG TABLET PO SCH ×2 (09:18→20:26)
[2020-08-26] MEDS: ZINC GLUCONATE 50 MG TABLET PO SCH (09:18)
[2020-08-26] MEDS: FONDAPARINUX 7.5 MG/0.6 ML SYRINGE SUBCUT SCH (09:19)
[2020-08-26] MEDS: ZINC OXIDE PASTE 113 GM TUBE TOP SCH ×2 (09:21→20:26)
[2020-08-26] MEDS: FAMOTIDINE 20 MG TABLET PO SCH ×2 (09:23→20:26)
[2020-08-26] MEDS: METOPROLOL TARTRATE 25 MG TABLET PO SCH ×2 (09:24→11:33)
[2020-08-26] MEDS ORDERED: METOPROLOL TARTRATE 25 MG TABLET PO PRN (10:50)
[2020-08-26] MEDS ORDERED: cloNIDine 0.1 MG TABLET PO PRN (10:50)
[2020-08-26] MEDS ORDERED: methylPREDNISolone SOD SUC 40 MG/1 ML VIAL IV SCH (11:00)
[2020-08-26] MEDS: DEXTROSE 5% 1,000 ML IV SCH (11:39)
[2020-08-26 11:40] LABS: ABG HCO3 30.7 MMOL/L (20-26); ABG Oxygen Saturation 86.4 % (95-100); ABG PH 7.219 (7.35-7.45); ABG PO2 56.7 MM HG (80-95); ABG TCO2 33.1 MMOL/L (23-27)
[2020-08-26 11:42] LABS: ABG PCO2 76.9 MM HG (35-48)
[2020-08-26] MEDS ORDERED: SODIUM CHLORIDE 0.45% 1,000 ML IV SCH (18:00)
[2020-08-26 20:09] LABS: ABG Base Excess -5.6 MMOL/L (-2.5-2.5); ABG HCO3 19.8 MMOL/L (20-26); ABG Oxygen Saturation 96.6 % (95-100); ABG PO2 99.7 MM HG (80-95); ABG TCO2 23.4 MMOL/L (23-27); Allen Test Positive; Pt O2 Delivery Device Ventilator
[2020-08-26 20:15] LABS: ABG PCO2 72.4 MM HG (35-48); ABG PH 7.152 (7.35-7.45)
[2020-08-26] MEDS ORDERED: SODIUM BICARBONATE 50 MEQ/50 ML VIAL IV ONE (20:44)
[2020-08-26] MEDS ORDERED: INSULIN GLARGINE 100 UNIT/ML SUBCUT SCH (21:00)
[2020-08-26] MEDS ORDERED: SODIUM BICARB INJ 50 MEQ in SODIUM CHLORIDE 0.45% 1,000 ML IV SCH (21:00)
[2020-08-27] MEDS: CEFEPIME 1,000 MG in SODIUM CHLORIDE 0.9% 100 ML IV SCH (00:54)
[2020-08-27] MEDS: INSULIN REGULAR 100 UNIT/ML SUBCUT SCH ×2 (00:54→06:11)
[2020-08-27] MEDS: ALBUTEROL INHALER 18 GM INH SCH (01:34)
[2020-08-27] MEDS: fentaNYL INJ 2,500 MCG in SODIUM CHLORIDE 0.9% 450 ML IV PRN (02:30)
[2020-08-27] MEDS: PHENYLEPHRINE DRIP 40 MG/250 ML PREMIX IV PRN (03:42)
[2020-08-27 04:15] LABS: ABG Base Excess -10.8 MMOL/L (-2.5-2.5); ABG HCO3 19.3 MMOL/L (20-26); ABG Oxygen Saturation 93.9 % (95-100); ABG PCO2 63.3 MM HG (35-48); ABG PO2 82.8 MM HG (80-95); ABG TCO2 21.2 MMOL/L (23-27); Allen Test Positive; Pt O2 Delivery Device Ventilator
[2020-08-27 04:31] LABS: ABG PH 7.102 (7.35-7.45)
[2020-08-27] MEDS ORDERED: SODIUM BICARBONATE 50 MEQ/50 ML VIAL IV ONE (05:13)
[2020-08-27] MEDS ORDERED: SODIUM BICARB INJ 100 MEQ in SODIUM CHLORIDE 0.45% 1,000 ML IV SCH (05:30)
[2020-08-27] MEDS: methylPREDNISolone SOD SUC 40 MG/1 ML VIAL IV SCH (06:09)
== END 2020-08-27 05:25 | disposition expired | DRG 207 ==
LOC: N.ED 09:51 → SUATTDRO 12:17 → N.EDINP 12:17 → N.2E 13:55 → N.CC 08-18 01:38
PROVIDERS: ADMIT Internal Medicine; ATTEND Internal Medicine